=== PATIENT | female | born 1945 | race Caucasian/White ===

== ENCOUNTER 2016-08-08 11:00 | Observation (INO) | payer OTHER ==
[~2016-08-08] VITALS: Ht 170.2 cm; Wt 67.5 kg
[~2016-08-08 11:00] MED LIST: ASPIR 8181 M1 PO; ATHENOL325 MG PO; BENTYL20 MG PO; DICYCLOMINE HCL10 MG PO; DICYCLOMINE HCL20 MG PO; DOXYCYCLINE HY100 M3 PO; FIORICET,ESG1 TABLET PO; IRON325 M1 PO; KLOR-CON M1010 MEQ PO; LEVOTHYROXINE75 MCG PO; LISINOPRIL5 MG PO; LO-DOSE ASPIRIN81 M1 PO; MACROBID100 MG PO; MIRALAX17 GM PO; MUCINEX600 MG PO; NITROSTAT0.4 MG SL; OMEPRAZOLE40 M1 PO; PAROXETINE HCL10 MG PO; PERCOCET 5/31 TABLET PO; ULTRAM50 MG PO; ZANTAC150 MG PO; ZOFRAN ODT4 MG PO
[2016-08-08 12:32] LABS: HEMATOCRIT 31.1 % (36.0-46.0); MCH 28.6 PG (29.0-34.0); MCHC 32.5 G/DL (30.0-36.0); MCV 88.1 FL (83-99); MEAN PLAT.VOLUME 11.2 uM^3 (9.5-12.4); PLATELET COUNT 244 K/uL (156-360); RBC DIS.WIDTH-CV 14.7 % (11.8-14.6); RBC DIS.WIDTH-SD 46.7 % (39-53); RED BLOOD COUNT 3.53 M/uL (3.80-5.20); WHITE BLOOD COUNT 4.9 K/uL (4.1-10.2)
[2016-08-08 12:42] LABS: CHLORIDE 112 mEq/L (99-109); POTASSIUM 3.9 mEq/L (3.7-5.4); SODIUM 140 mEq/L (136-147)
[2016-08-08 12:45] LABS: GLUCOSE 90 mg/dL (70-99)
[2016-08-08 12:46] LABS: ANION GAP 9 MEQ/L (2-14)
[2016-08-08 12:47] LABS: TOTAL BILIRUBIN 0.2 mg/dL (0.0-1.0)
[2016-08-08 12:48] LABS: ALKALINE PHOSPHATASE 87 IU/L (3-129)
[2016-08-08 12:49] LABS: GFR ESTIMATE (CALCULATED) 31 mL/min/
[2016-08-08 12:50] LABS: DIRECT BILIRUBIN 0.1 mg/dL (0.0-0.3); UREA NITROGEN (BUN) 20 mg/dL (9-23)
[2016-08-08 12:54] LABS: TROP-I INTERPRETATION NEGATIVE; TROPONIN-I < 0.01 ng/mL (0.0-0.30)
[2016-08-08 15:09] LABS: ADD MIUA? YES; BILIRUBIN NEGATIVE; BLOOD NEGATIVE; COLOR YELLOW ((YELLOW)); GLUCOSE (STRIP) NEGATIVE; KETONES NEGATIVE; LEUKOCYTES SMALL; NITRITE NEGATIVE; PROTEIN (STRIP) 30; SPECIFIC GRAVITY 1.017 (1.000-1.030); UROBILINOGEN 0.2 MG/DL (0.2-1.0)
[2016-08-08 15:53] LABS: EPITHELIAL CELLS 1+; RED BLOOD CELLS 0-5 /HPF (0-5); WHITE BLOOD CELLS 0-5 /HPF (0-5)
[2016-08-08 15:54] LABS: BACTERIA RARE; CASTS PRESENT /LPF; CRYSTALS NONE SEEN; HYALINE CASTS RARE /LPF; MUCUS RARE; UCUL ADDED? NO
[2016-08-08] MEDS ORDERED: MIRALAX17 GM PO (16:03)
[2016-08-08] MEDS ORDERED: BENTYL20 MG PO (16:04)
[2016-08-08] MEDS ORDERED: FLONASE16 G1 BOTH NARES (16:04)
[2016-08-08] MEDS ORDERED: VITAMIN D2000 UNIT PO (16:04)
[2016-08-08 19:30] LABS: TROP-I INTERPRETATION NEGATIVE; TROPONIN-I < 0.01 ng/mL (0.0-0.30)
[2016-08-08 21:47] VITALS: BP 140/63
[2016-08-09 00:12] VITALS: BP 93/50
[2016-08-09 04:51] VITALS: BP 95/55
[2016-08-09 06:54] LABS: ANION GAP 7 MEQ/L (2-14); CHLORIDE 113 MEQ/L (99-109); GFR ESTIMATE (CALCULATED) 34 mL/min/; GLUCOSE 80 mg/dL (70-99); POTASSIUM 3.9 MEQ/L (3.7-5.4); SAMPLE HEMOLYSIS CHECK 0; SAMPLE ICTERIC CHECK 0; SAMPLE LIPEMIA CHECK 0; SODIUM 139 MEQ/L (136-147); UREA NITROGEN (BUN) 21 mg/dL (9-23)
[2016-08-09 08:01] VITALS: BP 100/54
[2016-08-09 11:45] VITALS: BP 99/55
[2016-08-09] MEDS ORDERED: LISINOPRIL5 MG PO (15:45)
[2016-08-09 15:53] VITALS: BP 115/60
== END 2016-08-09 16:49 | disposition home or self-care (01) ==
LOC: EME 11:00 → EDOF 17:37 → 5WEST 17:37 → EDOF 17:37 → 5WEST 21:20
PROVIDERS: Internal Medicine; Physician Assistant
DX: R55 Syncope and collapse (principal); W18.12XA Fall from or off toilet with subsequent striking against object, initial encounter; D50.9 Iron deficiency anemia, unspecified; H53.9 Unspecified visual disturbance; R11.0 Nausea; R61 Generalized hyperhidrosis; I12.9 Hypertensive chronic kidney disease with stage 1 through stage 4 chronic kidney disease, or unspecified chronic kidney disease; N18.3 Chronic kidney disease, stage 3 (moderate); Z87.19 Personal history of other diseases of the digestive system; F17.210 Nicotine dependence, cigarettes, uncomplicated; Z88.0 Allergy status to penicillin; Z82.5 Family history of asthma and other chronic lower respiratory diseases; Z82.3 Family history of stroke
CPT/HCPCS: 70450; 71020; 80048; 80076; 81003; 84484; 85027; 93005; 93306; 93880; 99281; 99285; G0378; G8978 GP CH; G8979 GP CH; G8980 GP CH; G8987 GO CH; G8988 GO CH; G8989 GO CH; J1644; J7030

== ENCOUNTER 2017-01-30 06:38 | Day surgery (SDC) | payer OTHER ==
[~2017-01-30] VITALS: Ht 167.6 cm; Wt 66.2 kg
[~2017-01-30 06:38] MED LIST changes: +FLONASE16 G1 BOTH NARES; +SYNTHROID50 MCG PO; +VITAMIN D2000 UNIT PO; +VITAMIN D31000 UNI2 PO; +ZADITOR 0.100 DROP/5 BOTH EYES
[2017-01-30 07:47] VITALS: BP 113/65
[2017-01-30 14:03] VITALS: BP 124/56
[2017-01-30 19:46] VITALS: BP 98/53
[2017-01-30 23:47] VITALS: BP 101/56
[2017-01-31 04:02] VITALS: BP 101/56
[2017-01-31 06:45] LABS: EOSINOPHIL (%) 0 % (0-5); HEMATOCRIT 27.1 % (36.0-46.0); IMMATURE GRANULOCYTE (%) 0.3 % (0.0-0.7); INSTRUMENT ABS NEUTROPHIL CT 7.4 K/uL; LYMPHOCYTE COUNT 1.4 K/uL (1.0-2.8); MCH 30.2 PG (29.0-34.0); MCHC 32.5 G/DL (30.0-36.0); MCV 93.1 FL (83-99); MEAN PLAT.VOLUME 11.6 uM^3 (9.5-12.4); MONOCYTE (%) 7.4 % (3-12); MONOCYTE COUNT 0.7 K/uL (0-0.8); NEUTROPHIL (%) 77.5 % (45-76); NEUTROPHIL COUNT 7.4 K/uL (1.8-6.4); PLATELET COUNT 205 K/uL (156-360); RBC DIS.WIDTH-SD 50.9 % (39-53); RED BLOOD COUNT 2.91 M/uL (3.80-5.20); WHITE BLOOD COUNT 9.5 K/uL (4.1-10.2)
[2017-01-31 06:48] VITALS: BP 109/53
[2017-01-31 07:09] LABS: ANION GAP 6 MEQ/L (2-14); CHLORIDE 110 MEQ/L (99-109); GFR ESTIMATE (CALCULATED) 34 mL/min/; GLUCOSE 94 mg/dL (70-99); POTASSIUM 4.2 MEQ/L (3.7-5.4); SAMPLE HEMOLYSIS CHECK 0; SAMPLE ICTERIC CHECK 0; SAMPLE LIPEMIA CHECK 0; SODIUM 140 MEQ/L (136-147); UREA NITROGEN (BUN) 18 mg/dL (9-23)
[2017-01-31 08:13] VITALS: BP 112/60
== END 2017-01-31 09:20 | disposition home or self-care (01) ==
LOC: SDC 06:38 → 2SOUTH 12:05 → 2EASTP 12:05
PROVIDERS: Obstetrics & Gynecology Gynecology
DX: N83.8 Other noninflammatory disorders of ovary, fallopian tube and broad ligament (principal); N73.6 Female pelvic peritoneal adhesions (postinfective); K55.049 Acute infarction of large intestine, extent unspecified; E78.2 Mixed hyperlipidemia; I10 Essential (primary) hypertension; E03.9 Hypothyroidism, unspecified; D64.9 Anemia, unspecified; Z79.82 Long term (current) use of aspirin
CPT/HCPCS: 80048; 85025; 87086; 88305; G0378; J0131; J0330; J0690; J1100; J1170; J1644; J1885; J2250; J2405; J3010; J7120

== ENCOUNTER 2017-02-04 20:29 | Observation (INO) | payer OTHER ==
[~2017-02-04] VITALS: Ht 162.6 cm; Wt 66.7 kg
[2017-02-04 21:38] LABS: HEMATOCRIT 31.3 % (36.0-46.0); MCH 29.5 PG (29.0-34.0); MCHC 31.6 G/DL (30.0-36.0); MCV 93.2 FL (83-99); MEAN PLAT.VOLUME 10.7 uM^3 (9.5-12.4); PLATELET COUNT 248 K/uL (156-360); RBC DIS.WIDTH-CV 15.1 % (11.8-14.6); RBC DIS.WIDTH-SD 51.3 % (39-53); RED BLOOD COUNT 3.36 M/uL (3.80-5.20); WHITE BLOOD COUNT 6.2 K/uL (4.1-10.2)
[2017-02-04 21:49] LABS: INTER. NORMALIZED RATIO 1.1; PTT 22.6 (25-32)
[2017-02-04 21:52] LABS: CHLORIDE 108 mEq/L (99-109)
[2017-02-04 21:53] LABS: POTASSIUM 3.9 mEq/L (3.7-5.4); SODIUM 138 mEq/L (136-147)
[2017-02-04 21:55] LABS: GLUCOSE 97 mg/dL (70-99)
[2017-02-04 21:56] LABS: ANION GAP 7 MEQ/L (2-14)
[2017-02-04 21:57] LABS: TOTAL BILIRUBIN 0.3 mg/dL (0.0-1.0)
[2017-02-04 21:58] LABS: ALKALINE PHOSPHATASE 103 IU/L (3-129)
[2017-02-04 21:59] LABS: GFR ESTIMATE (CALCULATED) 28 mL/min/
[2017-02-04 22:00] LABS: UREA NITROGEN (BUN) 17 mg/dL (9-23)
[2017-02-04 22:02] LABS: LIPASE 27 U/L (1.0-51.0)
[2017-02-04 22:08] LABS: TROP-I INTERPRETATION NEGATIVE; TROPONIN-I < 0.01 ng/mL (0.0-0.30)
[2017-02-04 23:03] LABS: ADD MIUA? NO; BILIRUBIN NEGATIVE; BLOOD NEGATIVE; COLOR STRAW ((YELLOW)); GLUCOSE (STRIP) NEGATIVE; KETONES NEGATIVE; LEUKOCYTES NEGATIVE; NITRITE NEGATIVE; PROTEIN (STRIP) NEGATIVE; SPECIFIC GRAVITY 1.005 (1.000-1.030); UCUL ADDED? NO; UROBILINOGEN 0.2 MG/DL (0.2-1.0)
[2017-02-04] MEDS ORDERED: TRAMADOL HCL50 MG PO (23:45)
[2017-02-05 01:12] LABS: D-DIMER ELISA 0.49 mg/L FEU (< 0.57)
[2017-02-05 04:03] VITALS: BP 97/51
[2017-02-05 04:14] LABS: TOTAL CHOLESTEROL 144 mg/dL (Desirable<200); TRIGLYCERIDES 136 MG/DL (Normal: <150)
[2017-02-05 04:15] LABS: HDL CHOLESTEROL 40 MG/DL (Desirable>=50); LDL CHOLESTEROL 77 mg/dL (Desirable<100); NON-HDL CHOLESTEROL 104 mg/dL (Desirable<160)
[2017-02-05 07:10] VITALS: BP 106/56
[2017-02-05 07:44] LABS: EOSINOPHIL COUNT 0.3 K/uL (0-0.3); HEMATOCRIT 29.7 % (36.0-46.0); IMMATURE GRANULOCYTE (%) 0.1 % (0.0-0.7); INSTRUMENT ABS NEUTROPHIL CT 4.6 K/uL; LYMPHOCYTE COUNT 1.1 K/uL (1.0-2.8); MCH 30.1 PG (29.0-34.0); MCHC 31.3 G/DL (30.0-36.0); MCV 96.1 FL (83-99); MEAN PLAT.VOLUME 11.3 uM^3 (9.5-12.4); MONOCYTE (%) 10.3 % (3-12); MONOCYTE COUNT 0.7 K/uL (0-0.8); NEUTROPHIL (%) 68.7 % (45-76); NEUTROPHIL COUNT 4.6 K/uL (1.8-6.4); PLATELET COUNT 231 K/uL (156-360); RBC DIS.WIDTH-CV 15.6 % (11.8-14.6); RBC DIS.WIDTH-SD 54.4 % (39-53); RED BLOOD COUNT 3.09 M/uL (3.80-5.20); WHITE BLOOD COUNT 6.7 K/uL (4.1-10.2)
[2017-02-05 08:23] LABS: ALKALINE PHOSPHATASE 95 IU/L (3-129); ANION GAP 6 MEQ/L (2-14); CHLORIDE 112 MEQ/L (99-109); DIRECT BILIRUBIN 0.1 mg/dL (0.0-0.3); GFR ESTIMATE (CALCULATED) 34 mL/min/; GLUCOSE 77 mg/dL (70-99); POTASSIUM 4.5 MEQ/L (3.7-5.4); SAMPLE HEMOLYSIS CHECK 0; SAMPLE ICTERIC CHECK 0; SAMPLE LIPEMIA CHECK 0; SODIUM 143 MEQ/L (136-147); TOTAL BILIRUBIN 0.4 MG/DL (0.0-1.0); UREA NITROGEN (BUN) 14 mg/dL (9-23)
[2017-02-05 08:25] LABS: Estimated Average Glucose 111 mg/dL (70-123); HEMOGLOBIN A1c (GLYCOHEMOGLOB) 5.5 % HGB (Below 5.7)
[2017-02-05 11:08] LABS: TROP-I INTERPRETATION NEGATIVE; TROPONIN-I < 0.01 ng/mL (0.0-0.30)
[2017-02-05 11:38] VITALS: BP 110/68
== END 2017-02-05 12:23 | disposition home or self-care (01) ==
LOC: EME 20:29 → EDOF 02-05 00:44 → 5WEST 02-05 01:48
PROVIDERS: Emergency Medicine; Hospitalist
DX: N17.9 Acute kidney failure, unspecified (principal); I12.9 Hypertensive chronic kidney disease with stage 1 through stage 4 chronic kidney disease, or unspecified chronic kidney disease; N18.3 Chronic kidney disease, stage 3 (moderate); K21.9 Gastro-esophageal reflux disease without esophagitis; F32.9 Major depressive disorder, single episode, unspecified; D64.9 Anemia, unspecified; G89.29 Other chronic pain; R10.9 Unspecified abdominal pain; Z90.49 Acquired absence of other specified parts of digestive tract; F17.210 Nicotine dependence, cigarettes, uncomplicated; R49.0 Dysphonia; Z82.49 Family history of ischemic heart disease and other diseases of the circulatory system; Z82.5 Family history of asthma and other chronic lower respiratory diseases; Z88.0 Allergy status to penicillin; Z79.82 Long term (current) use of aspirin
CPT/HCPCS: 70450; 71020; 74176; 80048; 80053; 80061; 80076; 81003; 83036; 83605; 83690; 84484; 85025; 85027; 85379; 85610; 85730; 86900; 86901; 93005; 93970; 99281; 99285; G0378; J1644; J2405; J3010; J7030